=== PATIENT | male | born 1945 | race Native Hawaiian/Other Pacific Islander ===

== ENCOUNTER 2016-08-19 08:56 | Outpatient (CLI) | payer OTHER | END 2016-08-19 19:11 | disposition home or self-care (01) | LOC: US 08:56 | DX: I77.9 Disorder of arteries and arterioles, unspecified (principal) ==

== ENCOUNTER 2017-11-02 09:01 | Outpatient (CLI) | payer OTHER | END 2017-11-02 23:45 | disposition home or self-care (01) | LOC: US 09:01 | DX: I65.29 Occlusion and stenosis of unspecified carotid artery (principal) ==

== ENCOUNTER 2018-11-02 08:57 | Outpatient (CLI) | payer OTHER | END 2018-11-02 23:45 | disposition home or self-care (01) | LOC: US 08:57 | DX: I77.89 Other specified disorders of arteries and arterioles (principal) ==

== ENCOUNTER 2019-11-13 08:45 | Outpatient (CLI) | payer OTHER | END 2019-11-13 23:59 | disposition home or self-care (01) | LOC: US 08:45 | DX: I77.9 Disorder of arteries and arterioles, unspecified (principal) ==

== ENCOUNTER 2022-09-21 09:02 | Outpatient (CLI) | payer OTHER | END 2022-09-21 19:20 | disposition home or self-care (01) | LOC: RESP 09:02 | PROVIDERS: ATTEND Nurse Practitioner Family | DX: I48.19 Other persistent atrial fibrillation (principal); I10 Essential (primary) hypertension ==